=== PATIENT | female | born 1950 | race Caucasian/White ===

== ENCOUNTER 2019-04-14 03:19 | Emergency (ER) | payer MEDICARE ==
[~2019-04-14] VITALS: Ht 177.8 cm; Wt 74.8 kg
--- NOTE | 2019-04-14 03:41 | ED Chest Pain ---
General Chief Complaint: Chest Pain Stated Complaint: CP Source: patient History of Present Illness Date Seen by Provider: Apr 14, 2019 Time Seen by Provider: 03:20 Initial Comments PT ARRIVES VIA WHEELCHAIR FROM UPSTAIRS--STAFF MEMBER BROUGHT HER DOWN. C/O CHEST PAIN SINCE SATURDAY PAIN IS BELOW LEFT BREAST PAIN IS WORSE WITH CERTAIN POSITIONS, ESPECIALLY LAYING FLAT STATES PAIN IS SHARP AND COMES AND GOES RATE PAIN 8/10 AT WORST, NO PAIN AT THIS TIME STATES SHE HAS NOT BEEN ABLE TO SLEEP DUE TO PAIN NO SHORTNESS OF BREATH OR PAIN WITH BREATHING NO SWEATS NO SWELLING IN LEGS /FEET OR PAIN IN CALVES NO NAUSEA/VOMITING NO COUGH OR URI SYMPTOMS NO FEVER NO PALPITATIONS NO DIZZINESS NO HISTORY OF SIMILAR HAS NOT TAKEN ANYTHING FOR PAIN AT ANY TIMES PT AND LIVE IN [place], [place] IS CURRENTLY ADMITTED UPSTAIRS, AFTER HAVING CERVICAL SPINE SURGERY HERE, AND SHE HAS BEEN STAYING IN ROOM WITH HIM. Allergies and Home Medications Allergies Coded Allergies: hydrocodone (Verified Allergy, Unknown, 04/14/19) Patient Home Medication List Home Medication List Reviewed: Yes Review of Systems Review of Systems Constitutional: no symptoms reported; No chills, No diaphoresis, No dizziness, No fever Respiratory: No Symptoms Reported; Denies Cough, Denies Orthopnea, Denies Shortness of Air, Denies Wheezing Cardiovascular: See HPI, Chest Pain; Denies Edema, Denies Irregular Heart Rate, Denies Lightheadedness, Denies Palpitations, Denies Syncope Gastrointestinal: No Symptoms Reported Genitourinary: No Symptoms Reported Musculoskeletal: no symptoms reported; No back pain Skin: no symptoms reported Psychiatric/Neurological: No Symptoms Reported Endocrine: No Symptoms Reported Hematologic/Lymphatic: No Symptoms Reported Past [id number]-[id number]-[id number] Hx Patient Social History Alcohol Use: Occasionally Uses Recreational Drug Use: No Smoking Status: Never a Smoker Recent Foreign Travel: No Contact w/Someone Who Travel: No Past Medical History Surgeries: Yes (BILATERAL KNEE REPLACEMENTS; PILONIDAL CYST/ABSCESS REMOVED) Gallbladder, Hysterectomy, Joint Replacement, Orthopedic Respiratory: No Cardiac: No Neurological: No [employer]OR History: Hysterectomy, Menopausal Genitourinary: No Gastrointestinal: Yes (S/P MARJORIE) Gall Bladder Disease Musculoskeletal: Yes Arthritis Endocrine: No HEENT: No Cancer: No Psychosocial: No Integumentary: No Blood Disorders: No Physical Exam Vital Signs Vital Signs - First Documented 04/14/19 03:25 O2 Delivery Room Air Capillary Refill : Height, Weight, BMI Height: '" Weight: lbs. oz. kg; BMI Method: General Appearance: No Apparent Distress, WD/WN Neck: Full Range of Motion, Normal Inspection, Non Tender, Supple; No Carotid Bruit, No JVD Respiratory: Normal Breath Sounds, No Accessory Muscle Use, No Respiratory Distress, Other (LEFT LOWER ANTERIOR CHEST TENDER TO PALPATION--REPRODUCES PAIN ) Cardiovascular: Regular Rate, Rhythm, No Edema, No JVD, No Murmur, Normal Peripheral Pulses Gastrointestinal: Normal Bowel Sounds, No Organomegaly, No Pulsatile Mass, Non Tender, Soft Extremity: Normal Capillary Refill, Normal Inspection, Normal Range of Motion, Non Tender, No Calf Tenderness, No Pedal Edema Neurologic/Psychiatric: Alert, Oriented x3, No Motor/Sensory Deficits, Normal Mood/Affect, nurse ortho II-XII Norm as Tested Skin: Normal Color, Warm/Dry; No Rash Progress/Results/Core Measures Results/Orders Lab Results Laboratory Tests Test 04/14/19 03:28 Range/Units White Blood Count 7.4 4.3-11.0 10^3/uL Red Blood Count 4.38 4.35-5.85 10^6/uL Hemoglobin 13.0 11.5-16.0 G/DL Hematocrit 40 35-52 % Mean Corpuscular Volume 90 80-99 FL Mean Corpuscular Hemoglobin 30 25-34 PG Mean Corpuscular Hemoglobin Concent 33 32-36 G/DL Red Cell Distribution Width 12.6 10.0-14.5 % Platelet Count 346 130-400 10^3/uL Mean Platelet Volume 9.6 7.4-10.4 FL Neutrophils (%) (Auto) 50 42-75 % Lymphocytes (%) (Auto) 37 12-44 % Monocytes (%) (Auto) 11 0-12 % Eosinophils (%) (Auto) 2 0-10 % Basophils (%) (Auto) 0 0-10 % Neutrophils # (Auto) 3.7 1.8-7.8 X 10^3 Lymphocytes # (Auto) 2.7 1.0-4.0 X 10^3 Monocytes # (Auto) 0.8 0.0-1.0 X 10^3 Eosinophils # (Auto) 0.1 0.0-0.3 10^3/uL Basophils # (Auto) 0.0 0.0-0.1 10^3/uL Prothrombin Time 12.5 12.2-14.7 SEC INR Comment 0.9 0.8-1.4 Activated Partial Thromboplast Time 27 24-35 SEC Sodium Level 142 135-145 MMOL/L Potassium Level 3.7 3.6-5.0 MMOL/L Chloride Level 104 98-107 MMOL/L Carbon Dioxide Level 27 21-32 MMOL/L Anion Gap 11 5-14 MMOL/L Blood Urea Nitrogen 15 7-18 MG/DL Creatinine 0.65 0.60-1.30 MG/DL Estimat Glomerular Filtration Rate > 60 BUN/Creatinine Ratio 23 Glucose Level 105 70-105 MG/DL Calcium Level 9.5 8.5-10.1 MG/DL Corrected Calcium 9.2 8.5-10.1 MG/DL Magnesium Level 2.3 1.8-2.4 MG/DL Total Bilirubin 0.5 0.1-1.0 MG/DL Aspartate Amino Transf (AST/SGOT) 18 5-34 U/L Alanine Aminotransferase (ALT/SGPT) 13 0-55 U/L Alkaline Phosphatase 90 40-136 U/L Myoglobin 26.7 10.0-92.0 NG/ML Troponin I < 0.028 <0.028 NG/ML B-Type Natriuretic Peptide 48.5 <100.0 PG/ML Total Protein 7.6 6.4-8.2 GM/DL Albumin 4.4 3.2-4.5 GM/DL Amylase Level 75 25-125 U/L Lipase 31 8-78 U/L My Orders Orders - CHANTEL NGUYEN DO Cbc With Automated Diff (04/14/19 03:) Magnesium (04/14/19:) Chest 1 View, Ap/Pa Only (04/14/19:) Ekg Tracing (04/14/19:) Cardiac Profile 1 (04/14/19:) Comprehensive Metabolic Panel (04/14/19:) Myoglobin Serum (04/14/19:) Protime With Inr (04/14/19:) Partial Thromboplastin Time (04/14/19:) O2 (04/14/19:) Monitor-Rhythm Ecg Trace Only (6/18/19 03:26) Lipid Panel (04/15/19 06:00) Ed Iv/Invasive Line Start (04/14/19 03:26) Lipase (04/14/19 03:26) Amylase (04/14/19 03:26) BNP (04/14/19 03:26) Aspirin Chewable Tablet (Baby Aspirin Ch (04/14/19 03:45) Ct Angio Chest W (04/14/19 04:19) Ketorolac Injection (Toradol Injection) (04/14/19 04:30) Medications Given in ED Current Medications Medications Dose Ordered Sig/Alix Route Start Time Stop Time Status Last Admin Dose Admin Aspirin 324 mg ONCE ONCE PO 04/14/19 03:45 04/14/19 03:46 DC 04/14/19 03:45 324 MG Ketorolac Tromethamine 30 mg ONCE ONCE IVP 04/14/19 04:30 04/14/19 04:31 DC 04/14/19 04:27 30 MG Vital Signs/I&O 04/14/19 03:25 O2 Delivery Room Air Progress Progress Note : Progress Note GIVEN TORADOL WITH COMPLETE AND IMMEDIATE RELIEF OF PAIN BP DOWN WITHOUT TREATMENT--134/75 PRIOR TO DISMISSAL PT STATES THAT IS SUPPOSED TO BE DISMISSED THIS MORNING Initial ECG Impression Date: Apr 14, 2019 Initial ECG Impression Time: 03:34 Initial ECG Rate: 71 Initial ECG Rhythm: Normal Sinus Initial ECG Comparisson: No Previous ECG Available Diagnostic Imaging Comments CXR--? PERIHILAR PROMINENCE ? --PENDING RADIOLOGIST REVIEW CT CHEST ANGIOGRAM--NO P.E. OR ACUTE PROCESS, PER RADIOLOGIST REPORT AT 0549 Reviewed: Reviewed by Me Departure Impression Primary Impression: Left-sided chest wall pain Additional Impression: HTN (hypertension) Disposition: 01 HOME, SELF-CARE Condition: Improved Departure-Patient Inst. Referrals: NO,LOCAL PHYSICIAN (PCP/Family) Primary Care Physician Patient Instructions: DASH Diet, High Blood Pressure (DC), Chest Pain That Is Not Caused by the Heart (DC), Costochondritis (DC), Chest Pain (DC) Add. Discharge Instructions: ACTIVITIES TOLERATED FOLLOW UP WITH YOUR DR THIS WEEK FOR FURTHER CARE RETURN TO ER IF WORSE All discharge instructions reviewed with patient and/or family. Voiced understanding. Scripts Ketorolac Tromethamine (Ketorolac Tromethamine) 10 Mg Tablet 10 MG PO Q6H for Pain, #15 TAB Prov: CHANTEL NGUYEN DO 04/14/19 CHANTEL NGUYEN DO Apr 14, 2019 03:40
[2019-04-14 03:43] LABS: BASOPHILS % (AUTO) 0 % (0-10); EOSINOPHILS # (AUTO) 0.1 10^3/uL (0.0-0.3); EOSINOPHILS % (AUTO) 2 % (0-10); HEMATOCRIT 40 % (35-52); LYMPHOCYTES # (AUTO) 2.7 X 10^3 (1.0-4.0); LYMPHOCYTES % (AUTO) 37 % (12-44); MEAN CORPUSCULAR HEMOGLOBIN 30 PG (25-34); MEAN CORPUSCULAR HGB CONC 33 G/DL (32-36); MEAN CORPUSCULAR VOLUME 90 FL (80-99); MEAN PLATELET VOLUME 9.6 FL (7.4-10.4); MONOCYTES # (AUTO) 0.8 X 10^3 (0.0-1.0); MONOCYTES % (AUTO) 11 % (0-12); NEUTROPHILS # (AUTO) 3.7 X 10^3 (1.8-7.8); NEUTROPHILS % (AUTO) 50 % (42-75); PLATELET COUNT 346 10^3/uL (130-400); RED CELL DISTRIBUTION WIDTH 12.6 % (10.0-14.5); WHITE BLOOD COUNT 7.4 10^3/uL (4.3-11.0)
[2019-04-14] MEDS ORDERED: ASPIRIN 81 MG CHEW (CHILDREN'S ASA) PO ONE (03:45)
[2019-04-14 04:03] LABS: INR 0.9 (0.8-1.4); PROTHROMBIN TIME PATIENT 12.5 SEC (12.2-14.7)
[2019-04-14 04:10] LABS: ALANINE AMINOTRANSFERASE 13 U/L (0-55); ALBUMIN 4.4 GM/DL (3.2-4.5); ALKALINE PHOSPHATASE 90 U/L (40-136); AMYLASE 75 U/L (25-125); BILIRUBIN,TOTAL 0.5 MG/DL (0.1-1.0); BUN/CREATININE RATIO 23; CALCIUM 9.5 MG/DL (8.5-10.1); CARBON DIOXIDE 27 MMOL/L (21-32); CHLORIDE 104 MMOL/L (98-107); CREATININE SERUM 0.65 MG/DL (0.60-1.30); GFR ESTIMATED > 60; GLUCOSE 105 MG/DL (70-105); LIPASE 31 U/L (8-78); MAGNESIUM 2.3 MG/DL (1.8-2.4); POTASSIUM 3.7 MMOL/L (3.6-5.0); SODIUM 142 MMOL/L (135-145); TOTAL PROTEIN 7.6 GM/DL (6.4-8.2)
[2019-04-14] MEDS ORDERED: KETOROLAC 30 MG/ML VIAL IVP ONE (04:30)
--- NOTE | 2019-04-14 05:47 | Diagnostic Imaging Report ---
PROCEDURE: CT angiography of the chest with contrast. TECHNIQUE: Multiple contiguous axial images were obtained through the chest after uneventful bolus administration of intravenous contrast. 2D reconstructed CTA MIP acquisitions were also performed. Auto Exposure Controls were utilized during the CT exam to meet ALARA standards for radiation dose reduction. INDICATION: Chest pain COMPARISON: None available. FINDINGS: Vasculature: No pulmonary emboli. No CT evidence of pulmonary hypertension or right ventricular strain. Thoracic aorta is normal in caliber. No aortic dissection or pseudoaneurysm. Heart and mediastinum: Heterogeneous thyroid is without discrete nodule. No supraclavicular, axillary, or intra-thoracic lymphadenopathy. The heart is normal in size without pericardial effusion. Pleura: No pleural effusion or pneumothorax. Lungs and airway: No endoluminal lesion in the trachea or central bronchi. No pulmonary mass, nodule or consolidation. Upper abdomen: Allowing for the phase of contrast, no acute abnormality in the upper abdomen is seen. Cholecystectomy. Musculoskeletal: No concerning osseous lesion. IMPRESSION: 1. No acute cardiopulmonary process. Specifically, no pulmonary emboli or acute aortic syndrome. Dictated by: Dictated on workstation # [id number]
--- NOTE | 2019-04-14 05:49 | Diagnostic Imaging Report ---
CHEST 1 VIEW, AP/PA ONLY Indication: Chest pain Comparison: None available. Findings: No focal airspace disease in the visualized lungs. Please note that the posterior lower lobes are poorly evaluated by portable radiography. No pleural effusion or pneumothorax. Normal cardiomediastinal silhouette. Impression: No acute cardiopulmonary process by portable radiography. Dictated by: Dictated on workstation # [id number]
[2019-04-14] MEDS ORDERED: KETO10TA PO (05:54)
[2019-04-14 06:22] VITALS: BP 150/79
== END 2019-04-14 06:25 | disposition home or self-care (01) ==
LOC: ER 03:24
DX: R07.89 Other chest pain (principal); I10 Essential (primary) hypertension; Z88.5 Allergy status to narcotic agent; Z96.653 Presence of artificial knee joint, bilateral; Z98.890 Other specified postprocedural states; Z90.710 Acquired absence of both cervix and uterus; Z90.49 Acquired absence of other specified parts of digestive tract; Z87.19 Personal history of other diseases of the digestive system
CPT/HCPCS: 36415; 71045; 71275; 80053; 82150; 83690; 83735; 83874; 83880; 84484; 85025; 85610; 85730; 93005; 93041; 96374